=== PATIENT | female | born 1945 | race Caucasian/White ===

== ENCOUNTER → 2017-11-01 | Outpatient (CLI) | payer MEDICARE | END | disposition home or self-care (01) | LOC: KCIC 09:55 | DX: J42 Unspecified chronic bronchitis (principal); J84.10 Pulmonary fibrosis, unspecified | CPT/HCPCS: 71046 ==

== ENCOUNTER → 2018-02-25 | Outpatient (CLI) | payer MEDICARE | END | disposition home or self-care (01) | LOC: KCIC CT 12:17 | DX: I77.811 Abdominal aortic ectasia (principal); M47.894 Other spondylosis, thoracic region; R91.8 Other nonspecific abnormal finding of lung field; Z85.72 Personal history of non-Hodgkin lymphomas | CPT/HCPCS: 71250 ==

== ENCOUNTER → 2020-03-11 | Outpatient (CLI) | payer MEDICARE ==
[~2020-03-11] MED LIST: IBUP-1027 PO
--- NOTE | 2020-03-11 13:03 | KCIC ---
Examination: CT chest without contrast HISTORY: History of lung nodule follow-up COMPARISON: None TECHNIQUE: Axial CT images of chest were performed without IV contrast. Coronal and sagittal reformats are performed Exposure: One or more of the following individualized dose reduction techniques were utilized for this examination: 1. Automated exposure control 2. Adjustment of the mA and/or kV according to patient size 3. Use of iterative reconstruction technique FINDINGS: The visualized thyroid gland grossly appears unremarkable. Central airways are patent. Coronary artery calcifications. The ascending aorta measures 3.9 cm in transverse dimension. Mild coronary artery calcifications. Small subcentimeter mediastinal lymph nodes identified. Calcified granuloma identified in the left lower lobe of the lung measuring 1 cm similar to prior exam. No evidence of pleural effusion or pneumothorax. The visualized noncontrasted liver, spleen, adrenals grossly appears unremarkable. Mild degenerative changes thoracic spine. IMPRESSION: 1. Calcified granuloma left lower lobe of the lung similar to prior exam. 2. Mild ectasia ascending aorta similar to prior exam. Electronically signed by: Rickey Anand MD (03/11/2020 1:01 PM) [id number]
== END ==
LOC: KCIC CT 12:34
PROVIDERS: ATTEND Internal Medicine Pulmonary Disease
DX: I77.810 Thoracic aortic ectasia (principal); J98.4 Other disorders of lung; J84.10 Pulmonary fibrosis, unspecified
CPT/HCPCS: 71250

== ENCOUNTER → 2021-02-10 | Outpatient (CLI) | payer MEDICARE ==
--- NOTE | 2021-02-10 16:09 | KCIC ---
EXAM: PA and Lateral Views of the Chest DATE: 02/10/2021 11:38 AM INDICATION: Reason: CHRONIC BRONCHITIS, COUGH, SOA, RT UPPER CHEST PAIN W/ BREATHING 6 DAYS / Spl. In structions: FEVER 102.4 / History: COMPARISON: 11/01/2017. CT 03/11/2040 FINDINGS: The heart is not enlarged. Mediastinal and hilar contours are stable. Right upper lung airspace opacities likely consolidative process such as pneumonia. No pleural effusion or pneumothorax. IMPRESSION: 1. Right upper lobe parenchymal airspace opacities likely pneumonia. Follow-up to resolution recomme nded. Electronically signed by: Misael Thomas MD (02/10/2021 4:07 PM) [email or web address]
== END ==
LOC: KCIC 11:34
PROVIDERS: ATTEND Family Medicine
DX: R91.8 Other nonspecific abnormal finding of lung field (principal); J42 Unspecified chronic bronchitis
CPT/HCPCS: 71046

== ENCOUNTER → 2021-03-20 | Outpatient (CLI) | payer MEDICARE ==
--- NOTE | 2021-03-20 14:31 | KCIC ---
EXAM: PA and Lateral Views of the Chest DATE: 03/20/2021 11:25 AM INDICATION: Reason: Pneumonia RUL follow up / Spl. Instructions: Past smoker. Pneumonia in January / tory: COMPARISON: No Prior FINDINGS: The heart is not enlarged. Mediastinal and hilar contours are normal. Interval resolution of the right upper lobe opacities. No pleural effusion or pneumothorax. Calcified granuloma left upper lung. IMPRESSION: 1. No radiographic evidence for acute cardiopulmonary process. Electronically signed by: Misael Thomas MD (03/20/2021 2:28 PM) [id number]
== END ==
LOC: KCIC 11:19
PROVIDERS: ATTEND Family Medicine
DX: J18.9 Pneumonia, unspecified organism (principal)
CPT/HCPCS: 71046

== ENCOUNTER → 2021-11-24 | Outpatient (CLI) | payer MEDICARE ==
--- NOTE | 2021-11-24 16:00 | KCIC ---
EXAMINATION: XR CHEST 2V CLINICAL HISTORY: Shortness of breath x4-5 MO, HAS RA, R/O ILD VS COPD, NON . EXAM DATE/TIME: 11/24/2021 11:22 AM COMPARISON: 03/20/2021 FINDINGS: Lines, Tubes, and Devices: None. Cardiomediastinal Silhouette: Within normal limits. Lungs and Pleura: No evidence of focal airspace consolidation or pleural effusion. Left apical old ca lcified granuloma. Pulmonary vasculature unremarkable. Bones and Soft Tissues: Degenerative changes in the thoracic spine. Cholecystectomy clips. IMPRESSION: No evidence of acute cardiopulmonary abnormality. Electronically signed by: Dionicio Manrique DO (11/24/2021 3:57 PM) [id number]
== END ==
LOC: KCIC 11:11
PROVIDERS: ATTEND Internal Medicine Rheumatology
DX: J84.10 Pulmonary fibrosis, unspecified (principal); M47.814 Spondylosis without myelopathy or radiculopathy, thoracic region; Z90.49 Acquired absence of other specified parts of digestive tract
CPT/HCPCS: 71046

== ENCOUNTER → 2022-01-05 | Outpatient (CLI) | payer MEDICARE ==
[~2022-01-05] MED LIST changes: +CONTRAST GIVEN. MC PRN; +IOHEXOL 300 MG/ML 100ML VIAL. IV ONE
--- NOTE | 2022-01-05 10:38 | KCIC ---
Examination: CT chest with IV contrast HISTORY: History of dyspnea, lymphoma, shortness of breath COMPARISON: 03/11/2020 TECHNIQUE: Axial CT images of performed with IV contrast. Coronal and sagittal reformats are performe d Exposure: One or more of the following individualized dose reduction techniques were utilized for thi s examination: 1. Automated exposure control 2. Adjustment of the mA and/or kV according to patient size 3. Use of iterative reconstruction technique FINDINGS: The visualized pancreas grossly appears unremarkable. Central airways are patent. Ascending aorta steven sures 3.6 cm in transverse dimension. Coronary artery calcifications. No radiologically significant mediastinal lymphadenopathy.Calcified granuloma measures 9 mm left lowe r lobe lung. The liver, spleen, adrenals grossly appears unremarkable Mild degenerative changes thoracic spine IMPRESSION: 1. No acute findings. 2. Coronary artery calcifications. Electronically signed by: Rickey Anand MD (01/05/2022 10:35 AM) [id number]
== END ==
LOC: KCIC CT 08:35
PROVIDERS: ATTEND Family Medicine
DX: I25.10 Atherosclerotic heart disease of native coronary artery without angina pectoris (principal); J84.10 Pulmonary fibrosis, unspecified; M47.814 Spondylosis without myelopathy or radiculopathy, thoracic region
CPT/HCPCS: 71260; 82565; Q9967